=== PATIENT | male | born 1980 ===

== ENCOUNTER 2022-12-04 10:19 | Outpatient (AMB) | payer OTHER, SELFPAY ==
[2022-12-04 10:30] VITALS: BP 120/78; PULSE 70; O2SAT 98; BMI 28.5
--- NOTE | 2022-12-04 10:30 | MHC.PC.OV ---
Vital Signs 12/04/22 10:30 Height 5 ft 11 in Weight 204 lb 6 oz BMI 28.5 BP 120/78 Blood Pressure Location Lt brachial Position Sitting Pulse 70 Pulse Source Pulse Oximeter Pulse Oximetry (%) 98 Oxygen Delivery Method Room Air Intake Visit Reasons: PE Intake Note: Patient is here today for a physical. 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 Last seen in June for tick bite. [facility] Medical History Impaired glucose tolerance Tobacco abuse Surgical History (Reviewed 12/04/22 @ 10:36 by Christine Silva [facility] Anal fistula Family History (Updated 12/04/22 @ 10:58 by Naomi Cole MD) Father Prostate cancer, Onset Age: 50 Alcohol abuse Paternal Grandfather Prostate cancer Social History (Updated 12/04/22 @ 10:59 by Naomi Cole MD) Housing: House Alcohol intake: current Alcohol intake frequency: a few times a week Patient Tobacco Use Status: Former Tobacco user Tobacco use type: Cigarette Years Smoked: vape presently e-Cigarette/Vaping Use: Never Used Second Hand Smoke Exposure: No service: No Current occupational status: employed Cognitive needs: No Hearing needs: No Vision needs: No Questionnaire Thrive Questionnaire Date Thrive assessed: 11/19/21 AUDIT C Alcohol Use Questionnaire (AUDIT-C) 1. How often do you have a drink containing alcohol?: 2-4 times a month 2. How many drinks containing alcohol do you have on a typical day when you are drinking?: 5 or 6 3. How often do you have six or more drinks on one occasion?: Less than monthly Total Score: 5 ZENIA-7 AMB Questionnaire ZENIA-7 Date ZENIA - 7 assessed: 07/01/22 Source: Developed by Drs. Russ Chamberlain, Heather Giordano, Julian Arteaga and colleagues, with an educational viji from [employer]. Review of Systems Const Denies poor appetite and Denies weakness Eyes Denies no additional complaints ENT Reports Normal hearing present, Denies dizziness, Denies nasal congestion, Denies tinnitus and Denies sore throat Card Denies chest pain, Denies syncope, Denies rapid heart rate and Denies dyspnea Resp Denies cough and Denies dyspnea GI Denies change in stool character, Reports constipation, Denies diarrhea, Denies nausea and Denies vomiting Denies dysuria and Denies urinary frequency Neuro Reports Normal hearing present, Denies confusion, Denies dizziness, Denies syncope and Denies weakness Psych Denies confusion Physical exam (Primary Care) Vital Signs: Last Vital Signs Pulse 70 12/04/22 10:30 BP 120/78 12/04/22 10:30 Pulse Ox 98 12/04/22 10:30 Oxygen Delivery Method Room Air 12/04/22 10:30 BMI result Body Mass Index 28.5 Tobacco/Smoking Status: Tobacco use Status Tobacco use date assessed 07/01/22 12/04/22 10:30 Patient Tobacco Use Status Former Tobacco user 12/04/22 10:30 Tobacco use type Cigarette 12/04/22 10:30 e-Cigarette/Vaping Use Never Used 12/04/22 10:30 Thrive Assessment: Date of Thrive Assessment Date Thrive assessed 11/19/21 12/04/22 10:30 Const General: No confusion Orientation/consciousness: No confusion HENMT Head: Yes normocephalic Ears: external ears normal and TM's normal bilaterally Face and sinus: Yes normal facial exam Mouth: moist mucous membranes Throat: Yes tonsils normal Eyes Conjunctivae: conjunctivae normal Pupils: Equal, round and reactive pupils present and Pupil accommodation reflex normal Direct Ophthalmoscopy: normal light reflex Neck Neck: No lymphadenopathy Thyroid: Thyroid normal Chest Chest palpation & inspection: normal inspection of the chest Resp Effort & Inspection: normal respiratory effort and no audible wheezes Auscultation: clear to auscultation bilaterally, no crackles, no wheezes and lung sounds not diminished Cardio Rate: regular rate Rhythm: regular rhythm Peripheral pulses: radial pulses present and dorsalis pedis present GI Palpation (GI): no masses Auscultation: normal bowel sounds and normoactive bowel sounds Rectal Exam - Male: Yes deferred Male General Exam: Yes normal external exam Skin General skin exam: no rashes or lesions noted Rashes: no rashes Neuro General: No confusion Cranial nerves: Yes Equal, round and reactive pupils present and Yes Normal hearing present Cognition (Neuro): normal cognition Gait exam (Neuro): Normal gait present Motor exam (neuro): 5/5 motor strength present throughout Deep tendon reflexes (DTR's): Right brachioradialis reflex intensity grade: 2+, Left brachioradialis reflex intensity grade: 2+, Right patellar reflex intensity grade: 2+ and Left patellar reflex intensity grade: 2+ Extrem General: No edema Assessment and Plan Assessment & Plan (1) Annual physical exam: Code(s): Z00.00 - Encounter for general adult medical examination without abnormal findings (2) Tobacco abuse: Comment: Patient is vaping(November 2022) Code(s): Z72.0 - Tobacco use Plan: Patient is strongly advised to stop! (3) Impaired glucose tolerance: Code(s): R73.02 - Impaired glucose tolerance (oral) Plan: Decrease the amount of carbohydrate intake, pasta, bread, rice and potatoes are all sugar and that is aside from all the sweet stuff, remember that fruits are good but they are Sweet also. Blood work requested (4) Family history of prostate cancer: Code(s): Z80.42 - Family history of malignant neoplasm of prostate Plan: Will check for the prostate number Orders: Orders Vitamin B12 and Folate Today R73.02 - Impaired glucose tolerance (oral) Comprehensive Met. Panel Today R73.02 - Impaired glucose tolerance (oral) Hemoglobin A1c Today R73.02 - Impaired glucose tolerance (oral) Lipid Panel Today E78.00 - Pure hypercholesterolemia, unspecified, R73.02 - Impaired glucose tolerance (oral) Free T4 (Free Thyroxine) Today R73.02 - Impaired glucose tolerance (oral) Thyroid Stimulating Hormone Today R73.02 - Impaired glucose tolerance (oral) Complete Blood Count Auto Diff Today R73.02 - Impaired glucose tolerance (oral) Prostate Specific Antigen Scr Today Z80.42 - Family history of malignant neoplasm of prostate Coding Level of Care Code Est Pt Prev Care 40-64y(64012) Diagnoses Annual physical exam Z00.00 Tobacco abuse Z72.0 Impaired glucose tolerance R73.02 Family history of prostate cancer Z80.42
== END 2022-12-04 11:20 | disposition home or self-care (01) ==
PROVIDERS: Visit Provider Internal Medicine
DX: Z00.00 Encounter for general adult medical examination without abnormal findings (principal); Z72.0 Tobacco use; R73.02 Impaired glucose tolerance (oral); Z80.42 Family history of malignant neoplasm of prostate
CPT/HCPCS: 99396

== ENCOUNTER 2023-01-16 08:12 | Outpatient (AMB) | payer OTHER, SELFPAY ==
--- NOTE | 2023-01-16 08:30 | AM.OFFVISNUR ---
Intake Intake Visit Reasons: flu Allergies No Known Allergies Allergy (Verified 12/04/22 10:35) Office Procedures Flu Questionnaire Does the patient have a severe egg allergy?: No Does the patient have severe life threatening allergies?: No Does the patient have a fever or illness today?: No Has the patient ever had Guillain-[place] Syndrome?: No Has the patient ever had any past reaction to a flu shot?: No Immunizations flu vacc in9212-67 6mos up(PF) 60 mcg(15 mcgx4)/0.5 mL IM syringe Performing Provider: Naomi Cole MD Performing Location: [facility] Administered by: Alisia Garcia RN on 01/16/23 08:30 Dose Route Admin Location Dispensed Lot Number Expiration Date 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
== END 2023-01-16 08:32 | disposition home or self-care (01) ==
PROVIDERS: PCP Internal Medicine; Visit Provider Internal Medicine
DX: Z23 Encounter for immunization (principal)
CPT/HCPCS: 90471; 90686

== ENCOUNTER 2023-08-01 16:07 | Outpatient (AMB) | payer OTHER, SELFPAY ==
--- NOTE | 2023-08-01 16:08 | MHC.PC.OV ---
Intake Visit Reasons: Injured Knee Allergies No Known Allergies Allergy (Verified 08/01/23 16:09) Tobacco use date assessed: 08/01/23 Dental Screening Dental Screen Date: 08/01/23 Did you have a dental visit in the last 12 months?: Yes Did you have a dental problem in the last 6 months where you did not have access to dental care?: No Was dental information given to patient?: Patient has dentist HPI Injured Knee HPI Details 43-year-old overweight male smoker with impaired glucose tolerance coming in for an acute problem. Through Telehealth, L knee swollen week , started 2 months ago running, - stopped running 1 week now but still continues to have pain on the knee left prompted for consultation. [facility] Medical History Impaired glucose tolerance Tobacco abuse Surgical History Anal fistula Family History (Updated 08/01/23 @ 16:09 by Sherly Moon CMA) Father Prostate cancer, Onset Age: 50 Alcohol abuse Paternal Grandfather Prostate cancer Social History (Updated 12/04/22 @ 10:59 by Naomi Cole MD) Housing: House Alcohol intake: current Alcohol intake frequency: a few times a week Patient Tobacco Use Status: Former Tobacco user Tobacco use type: Cigarette Years Smoked: vape presently e-Cigarette/Vaping Use: Never Used Second Hand Smoke Exposure: No service: No Current occupational status: employed Cognitive needs: No Hearing needs: No Vision needs: No Questionnaire PHQ-9 Over the last 2 weeks, how often have you been bothered by any of the following problems? 1. Little interest or pleasure in doing things: not at all 2. Feeling down, depressed, or hopeless: not at all 3. Trouble falling or staying asleep, or sleeping too much: not at all 4. Feeling tired or having little energy: not at all 5. Poor appetite or overeating: not at all 6. Feeling bad about yourself - or that you are a failure or have let yourself or your family down: not at all 7. Trouble concentrating on things, such as reading the newspaper or watching television: not at all 8. Moving or speaking so slowly that other people could have noticed. Or the opposite - being so fidgety or restless that you have been moving around a lot more than usual: not at all 9. Thoughts that you would be better off or of hurting yourself in some way: not at all Total score: 0 Source: Developed by Drs. Russ Chamberlain, Heather Giordano, Julian Arteaga and colleagues, with an educational viji from [employer]. Thrive Questionnaire Date Thrive assessed: 08/01/23 I am a: Patient What is your living situation today?: I have a steady place to live Within the past 12 months, did the food you bought not last and you didn't have the money to get more?: Never true Within the past 12 months, did you worry whether your food would run out before you got money to buy more?: Never true Do you have trouble paying for medicines?: No Do you have trouble getting transportation to medical appointments?: No Do you have trouble paying your heating and electricity bill?: No Do you have trouble taking care of your child, family member or friend?: No Do you have trouble with day-to-day activities such as bathing, preparing meals, shopping, managing finances, etc.?: No Are you currently unemployed and looking for a job?: No Are you interested in more education?: No Currently or been in a relationship where the following occur: no concerns reported THRIVE Score: 0 AUDIT C Alcohol Use Questionnaire (AUDIT-C) 1. How often do you have a drink containing alcohol?: 2-4 times a month 2. How many drinks containing alcohol do you have on a typical day when you are drinking?: 5 or 6 3. How often do you have six or more drinks on one occasion?: Less than monthly Total Score: 5 ZENIA-7 AMB Questionnaire ZENIA-7 Date ZENIA - 7 assessed: 08/01/23 Feeling nervous, anxious, or on edge: 0 = Not at all Not being able to stop or control worryin = Not at all Worrying too much about different things: 0 = Not at all Trouble relaxin = Not at all Being so restless that it is hard to sit still: 0 = Not at all Becoming easily annoyed or irritable: 0 = Not at all Feeling afraid as if something awful might happen: 0 = Not at all Total ZENIA-7 score (0-4 normal; 5-9 mild; 10-14 moderate; 15-21 severe): 0 Source: Developed by Drs. Russ Chamberlain, Heather Giordano, Julian Arteaga and colleagues, with an educational viji from [employer]. Physical exam (Primary Care) Tobacco/Smoking Status: Tobacco use Status Tobacco use date assessed 08/01/23 08/01/23 16:10 Patient Tobacco Use Status Former Tobacco user 08/01/23 16:10 Tobacco use type Cigarette 08/01/23 16:10 e-Cigarette/Vaping Use Never Used 08/01/23 16:10 PHQ-9: PHQ-9 Score PHQ-9: Total score 0 08/01/23 16:10 Thrive Assessment: Date of Thrive Assessment Date Thrive assessed 08/01/23 08/01/23 16:10 Currently or been in a relationship where the following occur: no concerns reported Telehealth Telehealth Telehealth Platform: Telephone Location of provider rendering services: practice address Location of patient: address on file Patient Identification confirmed using: Name, : Yes Telehealth method: video (Iphone) Patient verbally consented to treatment: Yes Patient verbally consented to billing insurance company: Yes Patient informed of any privacy concerns related to visit: Yes Minutes spent on Phone/Video with Pt.: 15 Assessment and Plan Assessment & Plan (1) Left knee pain: Code(s): M25.562 - Pain in left knee Plan: X-ray has been requested discussed about if persistent may get Orthopedics involved. May use heat and Voltaren gel for pain Orders: Orders XR knee LT 2V Today M25.562 - Pain in left knee Coding Level of Care Code Tele Est Pt Level 3 (04452) Diagnoses Left knee pain M25.562
== END 2023-08-01 16:56 | disposition home or self-care (01) ==
LOC: HO.HMGH 16:07
PROVIDERS: PCP Internal Medicine; Visit Provider Internal Medicine
DX: M25.562 Pain in left knee (principal)
CPT/HCPCS: 99213

== ENCOUNTER 2023-08-02 07:47 | Outpatient (REF) | payer OTHER, SELFPAY ==
--- NOTE | ~2023-08-02 | XR_ITS ---
EXAMINATION: XR KNEE, LEFT CLINICAL INFORMATION: Pain. COMPARISON: None available. TECHNIQUE: AP and lateral views of the left knee. FINDINGS: No fracture or dislocation. There is a small joint effusion. Alignment is anatomic. Joint spaces are maintained. No abnormal soft tissue calcification. XR/XR knee LT 2V IMPRESSION: 1. No left knee fracture, dislocation or unusual degenerative change is seen. 2. There is a small left knee joint effusion.
[2023-08-02 08:10] LABS: MANUAL DIFF FLAG NO
[2023-08-02 08:32] LABS: Basophils Percent Auto 0.5 % (0-2); Eosinophils Absolute Auto 0.1 X10*3/uL (0.0-0.4); Eosinophils Percent Auto 3.1 % (0-4); Hematocrit 43.6 % (42.0-52.0); Hemoglobin 14.9 g/dl (14.0-18.0); Imm Gran Abs Auto 0.01 X10*3/uL (0.00-0.03); Imm Gran Pct Auto 0.3 % (0.0-0.4); Lymphocytes Absolute Auto 1.2 X10*3/uL (1.2-4.9); Lymphocytes Percent Auto 30.4 % (20-40); Mean Corpuscular HGB Conc 34.2 g/dl (31.0-36.0); Mean Corpuscular Hemoglobin 31.5 pg (27.0-33.0); Mean Corpuscular Volume 92.2 fL (80.0-98.0); Mean Platelet Volume 10.4 fL (9.4-12.4); Monocytes Absolute Auto 0.4 X10*3/uL (0.1-1.2); Neutrophils Absolute Auto 2.1 x10*3/uL (2.0-8.3); Neutrophils Percent Auto 54.7 % (45-73); Platelet Count 200 X10*3/uL (160-400); Red Blood Count 4.73 X10*6/uL (4.60-5.80); White Blood Count 3.9 X10*3/uL (4.8-10.8)
[2023-08-02 08:53] LABS: Estimated Average Glucose 103 mg/dL; Hemoglobin A1c % 5.2 % (<6.0)
[2023-08-02 09:24] LABS: Alanine Aminotransferase 14 U/L (0-40); Albumin Level 4.4 g/dL (3.5-5.0); Alkaline Phosphatase 46 U/L (39-117); Anion Gap 11 (12-20); Aspartate Amino Transferase 13 U/L (5-37); Bilirubin Total 0.4 mg/dL (0.0-1.0); Blood Urea Nitrogen 10 mg/dL (9-16); Calcium 9.6 mg/dL (8.4-10.2); Carbon Dioxide 26 mmol/L (22-29); Chloride 107 mmol/L (96-108); Cholesterol 233 mg/dL (<200); Estimated Glomerular Filt Rate > 60; Glucose Random 105 mg/dL (60-115); HDL Cholesterol 53 mg/dL (>40); LDL Cholesterol Calculated 159 mg/dL (<100); Potassium 4.3 mmol/L (3.3-5.1); Sodium 140 mmol/L (135-145); Triglycerides 105 mg/dL (<150)
[2023-08-02 09:41] LABS: Free T4 (Free Thyroxine) 1.08 ng/dL (0.71-1.85); Thyroid Stimulating Hormone 1.36 uIU/mL (0.32-4.0)
[2023-08-02 12:06] LABS: Folate 12.9 ng/mL (> or = 4.0); Prostate Specific Antigen Scr 0.37 ng/mL (<0.05-4.0); Vitamin B12 445 pg/mL (200-900)
== END 2023-08-02 07:48 | disposition home or self-care (01) ==
LOC: HO.XRAY 07:47
PROVIDERS: PCP Internal Medicine; Visit Provider Internal Medicine
DX: E78.00 Pure hypercholesterolemia, unspecified (principal); R73.02 Impaired glucose tolerance (oral); M25.562 Pain in left knee; Z12.5 Encounter for screening for malignant neoplasm of prostate; Z80.42 Family history of malignant neoplasm of prostate
CPT/HCPCS: 36415; 73560; 80053; 80061; 82607; 82746; 83036; 84153; 84439; 84443; 85025

== ENCOUNTER 2023-08-28 09:53 | Outpatient (AMB) | payer OTHER, SELFPAY ==
--- NOTE | 2023-08-28 09:57 | A.OFFVIS_ITS ---
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 The patient states that he aggravated his left knee several months ago while running. Since that time his discomfort and swelling have gotten worse. Most of the pain is along the medial aspect of his knee. He has tried physical therapy exercises which aggravated his pain. He has had difficulty running because of his pain. He has tried Tylenol and anti-inflammatory medicines which gave him minimal relief. He has failed the last 6 weeks of conservative treatment. Allergies No Known Allergies Allergy (Verified 08/28/23 10:04) Medication List - Last Reconciled 08/28/23 by Willian Storey MD No Known Home Meds [facility] Medical History Impaired glucose tolerance Tobacco abuse Surgical History Anal fistula Family History (Updated 08/01/23 @ 16:09 by Sherly Moon [facility]) Father Prostate cancer, Onset Age: 50 Alcohol abuse Paternal Grandfather Prostate cancer Social History (Updated 08/28/23 @ 10:04 by Merary Petersen [facility]) Housing: House Alcohol intake: current Alcohol intake frequency: a few times a week Patient Tobacco Use Status: Former Tobacco user Tobacco use type: Cigarette Years Smoked: vape presently e-Cigarette/Vaping Use: Never Used Second Hand Smoke Exposure: No service: No Current occupational status: employed 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 Cognitive needs: No Hearing needs: No Vision needs: No Physical Exam Vital Signs: BMI result Body Mass Index 28.4 Const Other: Well-nourished well-developed very friendly male awake alert and oriented x3 in no acute distress Extrem Other: Bilateral lower extremity examination shows good capillary refill, no skin lesions noted, normal sensation light touch Left knee examination shows a mild effusion, minimal crepitus with range of motion, tenderness along his medial joint line, positive Jorge's test, no instability Results Reviewed Results Reviewed: Standing full weight-bearing x-rays of the patient's left knee show minimal joint space narrowing, no acute bony abnormalities Assessment & Plan Assessment & Plan (1) Left knee pain: Code(s): M25.562 - Pain in left knee Category: Medical Plan Mr. Rees presents with left knee pain and swelling most likely due to a tear of his medial meniscus. Thus, I will send the patient for an MRI of his left knee for further evaluation. I will see him back once the MRI is completed to discuss the findings and treatment options. Feel free to call me at any time should questions regarding his orthopedic management arise. I spent 21 minutes in reviewing the patient's records and imaging studies, seeing the patient and documenting in the medical record. Orders: Orders MR knee LT wo con Today M25.562 - Pain in left knee Coding Level of Care Code New Pt Level 3 (67507) Diagnoses Left knee pain M25.562
[2023-08-28 09:58] VITALS: BMI 28.4
== END 2023-08-28 10:21 | disposition home or self-care (01) ==
PROVIDERS: PCP Internal Medicine; Visit Provider Orthopaedic Surgery
DX: M25.562 Pain in left knee (principal)
CPT/HCPCS: 99203

== ENCOUNTER → 2023-08-28 09:53 | Outpatient (BNVA) | payer OTHER, SELFPAY | PROVIDERS: PCP Internal Medicine; Visit Provider Orthopaedic Surgery ==

== ENCOUNTER 2023-10-27 07:09 | Outpatient (REF) | payer OTHER, SELFPAY ==
--- NOTE | ~2023-10-27 | MR_ITS ---
EXAMINATION: MR KNEE WITHOUT CONTRAST, LEFT CLINICAL INFORMATION: Pain in the left knee. COMPARISON: X-rays of the left knee July 2023. TECHNIQUE: MRI of the knee without contrast was performed using routine sequences on a high-field scanner. FINDINGS: MENISCI: Medial Meniscus: Intact. Lateral Meniscus: Intact. LIGAMENTS: Cruciate: Intact. Collateral: Intact. EXTENSOR MECHANISM: Intact. ARTICULAR CARTILAGE/BONE: Patellofemoral Compartment: There are some scattered areas of cartilage heterogeneity and subchondral edema in the lateral facet of the patella and lateral trochlea indicative of mild patellofemoral arthrosis. Medial Compartment: Normal. Lateral Compartment: Minimal heterogeneity of the weightbearing tibial articular cartilage compatible with normal variation or minimal arthrosis. Slight concavity of the shape of the subchondral bone along the medial weightbearing portion of the femoral articular surface. The overlying articular cartilage appears intact. This could be sequela of old subchondral/osteochondral fracture. JOINT FLUID AND BURSAE: Trace Camp's cyst. MR/MR knee LT wo con IMPRESSION: 1. Mild patellofemoral arthrosis. 2. Minimal arthrosis of the lateral compartment. 3. Trace Camp's cyst.
== END 2023-10-27 07:10 | disposition home or self-care (01) ==
LOC: HO.MRI 07:09
PROVIDERS: PCP Internal Medicine; Visit Provider Orthopaedic Surgery
DX: M25.562 Pain in left knee (principal)
CPT/HCPCS: 73721

== ENCOUNTER 2023-11-25 07:36 | Outpatient (AMB) | payer OTHER, SELFPAY ==
--- NOTE | 2023-11-25 07:38 | A.OFFVIS_ITS ---
Vital Signs 11/25/23 07:42 Height 5 ft 11 in Weight 204 lb BMI 28.4 Intake Visit Reasons: OV - Left Knee MRI Review Intake Note: Ming is a 43 year old male who presents to the office today for a Left Knee MRI Review. He states that his swelling went down in his knee due resting. He is planning on slowly returning to running for exercise. He denies locking or giving way. Allergies No Known Allergies Allergy (Verified 11/25/23 07:42) Medication List - Last Reconciled 11/25/23 by Willian Storey MD No Known Home Meds [facility] Medical History Impaired glucose tolerance Tobacco abuse Surgical History Anal fistula Family History (Updated 08/01/23 @ 16:09 by Sherly Moon CMA) Father Prostate cancer, Onset Age: 50 Alcohol abuse Paternal Grandfather Prostate cancer Social History Housing: House Alcohol intake: current Alcohol intake frequency: a few times a week Patient Tobacco Use Status: Former Tobacco user Tobacco use type: Cigarette Years Smoked: vape presently e-Cigarette/Vaping Use: Never Used Second Hand Smoke Exposure: No service: No Current occupational status: employed 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 Cognitive needs: No Hearing needs: No Vision needs: No Physical Exam Vital Signs: BMI result Body Mass Index 28.4 Const Other: Well-nourished well-developed very friendly male awake alert and oriented x3 in no acute distress Extrem Other: Bilateral lower extremity examination shows good capillary refill, no skin lesions noted, normal sensation light touch Left knee examination shows a minimal effusion, no crepitus with range of motion, no instability Results Reviewed Results Reviewed: MRI of the patient's left knee shows minimal diffuse arthrosis, no acute bony abnormalities Assessment & Plan Assessment & Plan (1) Left knee pain: Code(s): M25.562 - Pain in left knee Category: Medical Plan Mr. Rees presents with intermittent left knee discomfort due to early degenerative joint disease. I had a lengthy discussion with the patient regarding the treatment options. At this point the patient's symptoms are tolerable to him. We will hold off on an injection. Will gradually progress to activities as tolerated. He will follow up with me on an as-needed basis should his symptoms worsen in any way. Feel free to call me at any time should questions regarding his orthopedic management arise. I spent 20 minutes in reviewing the patient's records and imaging studies, seeing the patient and documenting in the medical record. Coding Level of Care Code Est Pt Level 3 (22590) Diagnoses Left knee pain M25.562
[2023-11-25 07:42] VITALS: BMI 28.4
== END 2023-11-25 07:52 | disposition home or self-care (01) ==
PROVIDERS: PCP Internal Medicine; Visit Provider Orthopaedic Surgery
DX: M25.562 Pain in left knee (principal)
CPT/HCPCS: 99212

== ENCOUNTER → 2023-11-25 07:36 | Outpatient (BNVA) | payer OTHER, SELFPAY | PROVIDERS: PCP Internal Medicine; Visit Provider Orthopaedic Surgery ==

== ENCOUNTER 2023-12-09 08:49 | Outpatient (AMB) | payer OTHER, SELFPAY ==
[2023-12-09 08:49] VITALS: BP 110/68; PULSE 61; O2SAT 98; BMI 28.0
--- NOTE | 2023-12-09 08:49 | MHC.PC.OV ---
Vital Signs 12/09/23 08:49 Height 5 ft 11 in Weight 201 lb BMI 28.0 BP 110/68 Blood Pressure Location Lt brachial Position Sitting Pulse 61 Pulse Source Pulse Oximeter Pulse Oximetry (%) 98 Oxygen Delivery Method Room Air Intake Visit Reasons: pe Allergies No Known Allergies Allergy (Verified 12/09/23 08:50) Medication List - Last Reconciled 12/09/23 by Naomi Cole MD [AG1 PO] omega 5-lgg-cvi-fish oil 120-180-500 mg (Fish Oil) caps PO [vitamin d and K PO] Tobacco use date assessed: 08/01/23 Dental Screening Dental Screen Date: 12/09/23 Did you have a dental visit in the last 12 months?: Yes Did you have a dental problem in the last 6 months where you did not have access to dental care?: No Was dental information given to patient?: Patient has dentist HPI pe HPI Details 43-year-old overweight male smoker with with impaired glucose tolerance hypercholesterolemia coming in for physical exam last seen in July 2023 for left knee pain. Patient has been seen by orthopedics in November 24 had an MRI showing minimal diffuse arthrosis. [facility] Medical History Impaired glucose tolerance Tobacco abuse Surgical History Anal fistula Family History (Updated 08/01/23 @ 16:09 by Sherly Moon [facility]) Father Prostate cancer, Onset Age: 50 Alcohol abuse Paternal Grandfather Prostate cancer Social History (Updated 12/09/23 @ 09:06 by Naoim Cole MD) Housing: House Alcohol intake: current Alcohol intake frequency: a few times a week Comment: 3x a week 2-3 drinks Patient Tobacco Use Status: Former Tobacco user Tobacco use type: Cigarette Years Smoked: vape presently e-Cigarette/Vaping Use: Never Used Second Hand Smoke Exposure: No service: No Current occupational status: employed 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 1. Little interest or pleasure in doing things: not at all 2. Feeling down, depressed, or hopeless: not at all 3. Trouble falling or staying asleep, or sleeping too much: not at all 4. Feeling tired or having little energy: not at all 5. Poor appetite or overeating: not at all 6. Feeling bad about yourself - or that you are a failure or have let yourself or your family down: not at all 7. Trouble concentrating on things, such as reading the newspaper or watching television: not at all 8. Moving or speaking so slowly that other people could have noticed. Or the opposite - being so fidgety or restless that you have been moving around a lot more than usual: not at all 9. Thoughts that you would be better off or of hurting yourself in some way: not at all Total score: 0 Source: Developed by Drs. Russ Chamberlain, Heather Giordano, Julian Arteaga and colleagues, with an educational viji from [employer] Thrive Questionnaire Date Thrive assessed: 08/01/23 AUDIT C Alcohol Use Questionnaire (AUDIT-C) 1. How often do you have a drink containing alcohol?: 2-4 times a month 2. How many drinks containing alcohol do you have on a typical day when you are drinking?: 5 or 6 3. How often do you have six or more drinks on one occasion?: Less than monthly Total Score: 5 ZENIA-7 AMB Questionnaire ZENIA-7 Date ZENIA - 7 assessed: 12/09/23 Feeling nervous, anxious, or on edge: 0 = Not at all Not being able to stop or control worryin = Not at all Worrying too much about different things: 0 = Not at all Trouble relaxin = Not at all Being so restless that it is hard to sit still: 0 = Not at all Becoming easily annoyed or irritable: 0 = Not at all Feeling afraid as if something awful might happen: 0 = Not at all Total ZENIA-7 score (0-4 normal; 5-9 mild; 10-14 moderate; 15-21 severe): 0 Source: Developed by Drs. Russ Chamberlain, Heather Giordano, Julian Arteaga and colleagues, with an educational viji from [employer] Review of Systems Const Denies poor appetite and Denies weakness Eyes Denies no additional complaints ENT Reports Normal hearing present, Denies dizziness, Denies nasal congestion, Denies tinnitus and Denies sore throat Card Denies chest pain, Denies syncope, Denies rapid heart rate and Denies dyspnea Resp Denies cough and Denies dyspnea GI Denies change in stool character, Reports constipation, Denies diarrhea, Denies nausea and Denies vomiting Denies dysuria and Denies urinary frequency Neuro Reports Normal hearing present, Denies confusion, Denies dizziness, Denies syncope and Denies weakness Psych Denies confusion Physical exam (Primary Care) Vital Signs: Oxygen Delivery Method Room Air 12/09/23 08:49 Tobacco/Smoking Status: Tobacco use Status Tobacco use date assessed 08/01/23 12/09/23 08:50 Patient Tobacco Use Status Former Tobacco user 12/09/23 08:50 Tobacco use type Cigarette 12/09/23 08:50 e-Cigarette/Vaping Use Never Used 12/09/23 08:50 PHQ-9: PHQ-9 Score PHQ-9: Total score 0 12/09/23 08:50 Thrive Assessment: Date of Thrive Assessment Date Thrive assessed 08/01/23 12/09/23 08:50 Const General: No confusion Orientation/consciousness: No confusion HENMT Head: Yes normocephalic Ears: external ears normal and TM's normal bilaterally Face and sinus: Yes normal facial exam Mouth: moist mucous membranes Throat: Yes tonsils normal Eyes Conjunctivae: conjunctivae normal Pupils: Equal, round and reactive pupils present and Pupil accommodation reflex normal Direct Ophthalmoscopy: normal light reflex Neck Neck: No lymphadenopathy Thyroid: Thyroid normal Chest Chest palpation & inspection: normal inspection of the chest Resp Effort & Inspection: normal respiratory effort and no audible wheezes Auscultation: clear to auscultation bilaterally, no crackles, no wheezes and lung sounds not diminished Cardio Rate: regular rate Rhythm: regular rhythm Peripheral pulses: radial pulses present and dorsalis pedis present GI Palpation (GI): no masses Auscultation: normal bowel sounds and normoactive bowel sounds Rectal Exam - Male: Yes deferred Skin General skin exam: no rashes or lesions noted Rashes: no rashes Neuro General: No confusion Cranial nerves: Yes Equal, round and reactive pupils present and Yes Normal hearing present Cognition (Neuro): normal cognition Gait exam (Neuro): Normal gait present Motor exam (neuro): 5/5 motor strength present throughout Deep tendon reflexes (DTR's): Right brachioradialis reflex intensity grade: 2+, Left brachioradialis reflex intensity grade: 2+, Right patellar reflex intensity grade: 2+ and Left patellar reflex intensity grade: 2+ Extrem General: No edema Assessment and Plan Assessment & Plan (1) Annual physical exam: Code(s): Z00.00 - Encounter for general adult medical examination without abnormal findings Plan: Patient is advised to eat healthy, keep well hydrated, keep active and have adequate sleep. (2) Hypercholesterolemia: Code(s): E78.00 - Pure hypercholesterolemia, unspecified Plan: Avoid fried foods, chicken skin, eggs, butter margarine, pastries and meat. Be it pork or beef they have a lot of cholesterol LDL goal of less than 130 and triglyceride of less than 150. (3) Tobacco abuse: Comment: Patient is vaping(November 2022) Code(s): Z72.0 - Tobacco use Plan: Discussed about plans of stopping. (4) Impaired glucose tolerance: Code(s): R73.02 - Impaired glucose tolerance (oral) Plan: Decrease the amount of carbohydrate intake, pasta, bread, rice and potatoes are all sugar and that is aside from all the sweet stuff, remember that fruits are good but they are Sweet also. (5) Left knee pain: Code(s): M25.562 - Pain in left knee Plan: Patient has met with Orthopedics and conservative management Orders: Orders Complete Blood Count Auto Diff 1 Year E78.00 - Pure hypercholesterolemia, unspecified Comprehensive Met. Panel 1 Year E78.00 - Pure hypercholesterolemia, unspecified Lipid Panel 1 Year E78.00 - Pure hypercholesterolemia, unspecified Vitamin B12 and Folate 1 Year E78.00 - Pure hypercholesterolemia, unspecified Hemoglobin A1c 1 Year R73.02 - Impaired glucose tolerance (oral) Free T4 (Free Thyroxine) 1 Year E78.00 - Pure hypercholesterolemia, unspecified Thyroid Stimulating Hormone 1 Year E78.00 - Pure hypercholesterolemia, unspecified Coding Level of Care Code Est Pt Prev Care 40-64y(19535) Diagnoses Annual physical exam Z00.00 Hypercholesterolemia E78.00 Tobacco abuse Z72.0 Impaired glucose tolerance R73.02 Left knee pain M25.562
== END 2023-12-09 09:25 | disposition home or self-care (01) ==
PROVIDERS: PCP Internal Medicine; Visit Provider Internal Medicine
DX: Z00.00 Encounter for general adult medical examination without abnormal findings (principal); E78.00 Pure hypercholesterolemia, unspecified; Z72.0 Tobacco use; R73.02 Impaired glucose tolerance (oral); M25.562 Pain in left knee
CPT/HCPCS: 99396

== ENCOUNTER 2024-12-10 10:02 | Outpatient (AMB) | payer OTHER, SELFPAY ==
--- NOTE | 2024-12-10 10:06 | A.OFFPC_ITS ---
Vital Signs 12/10/24 10:07 Height 5 ft 11 in Weight 196 lb BMI 27.3 BP 122/68 Blood Pressure Location Lt brachial Position Sitting Pulse 70 Pulse Source Pulse Oximeter Pulse Oximetry (%) 98 Oxygen Delivery Method Room Air Intake Visit Reasons: Annual Exam Allergies No Known Allergies Allergy (Verified 12/10/24 10:11) Medication List - Last Reconciled 12/10/24 by Naomi Cole MD [AG1 PO] nicotine 1 patch transdermal Q24H [vitamin d and K PO] Tobacco use date assessed: 12/10/24 Dental Screening Dental Screen Date: 12/10/24 Did you have a dental visit in the last 12 months?: Yes Did you have a dental problem in the last 6 months where you did not have access to dental care?: No Was dental information given to patient?: Patient has dentist [facility] Medical History (Updated 12/10/24 @ 10:43 by Naomi Cole MD) Impaired glucose tolerance Tobacco abuse Surgical History Anal fistula Family History (Updated 08/01/23 @ 16:09 by Sherly Moon [facility]) Father Prostate cancer, Onset Age: 50 Alcohol abuse Paternal Grandfather Prostate cancer Social History (Updated 12/10/24 @ 10:45 by Naomi Cole MD) Housing: House Alcohol intake: current Alcohol intake frequency: a few times a week Comment: 3x a week 2-3 drinks- dry October 2024, normally 2 a night Patient Tobacco Use Status: Former Tobacco user Tobacco use type: Cigarette Years Smoked: vape presently, nicotine patch 12/2024 e-Cigarette/Vaping Use: Never Used Second Hand Smoke Exposure: No service: No Current occupational status: employed 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 1. Little interest or pleasure in doing things: not at all 2. Feeling down, depressed, or hopeless: not at all 3. Trouble falling or staying asleep, or sleeping too much: not at all 4. Feeling tired or having little energy: not at all 5. Poor appetite or overeating: not at all 6. Feeling bad about yourself - or that you are a failure or have let yourself or your family down: not at all 7. Trouble concentrating on things, such as reading the newspaper or watching television: not at all 8. Moving or speaking so slowly that other people could have noticed. Or the opposite - being so fidgety or restless that you have been moving around a lot more than usual: not at all 9. Thoughts that you would be better off or of hurting yourself in some way: not at all Total score: 0 Depression Screening Interpretation: Negative Depression Screening Done: Yes Source: Developed by Drs. Russ Chamberlain, Heather Giordano, Julian Arteaga and colleagues, with an educational viji from [employer]. Thrive Questionnaire Date Thrive assessed: 12/03/24 I am a: Patient What is your living situation today?: I have a steady place to live Within the past 12 months, did the food you bought not last and you didn't have the money to get more?: Never true Within the past 12 months, did you worry whether your food would run out before you got money to buy more?: Never true Do you have trouble paying for medicines?: No Do you have trouble getting transportation to medical appointments?: No Do you have trouble paying your heating and electricity bill?: No Do you have trouble taking care of your child, family member or friend?: No Do you have trouble with day-to-day activities such as bathing, preparing meals, shopping, managing finances, etc.?: No Are you currently unemployed and looking for a job?: No Are you interested in more education?: No Please select the resources that you would like help with: None Currently or been in a relationship where the following occur: No concerns reported THRIVE Score: 0 AUDIT C Alcohol Use Questionnaire (AUDIT-C) 1. How often do you have a drink containing alcohol?: 2-3 times a week 2. How many drinks containing alcohol do you have on a typical day when you are drinking?: 1 or 2 3. How often do you have six or more drinks on one occasion?: Less than monthly Total Score: 4 ZENIA-7 AMB Questionnaire ZENIA-7 Date ZENIA - 7 assessed: 12/10/24 Feeling nervous, anxious, or on edge: 1 = Several days Not being able to stop or control worryin = Not at all Worrying too much about different things: 1 = Several days Trouble relaxin = Not at all Being so restless that it is hard to sit still: 0 = Not at all Becoming easily annoyed or irritable: 1 = Several days Feeling afraid as if something awful might happen: 0 = Not at all Total ZENIA-7 score (0-4 normal; 5-9 mild; 10-14 moderate; 15-21 severe): 3 Source: Developed by Drs. Russ Chamberlain, Heather Giordano, Julian Arteaga and colleagues, with an educational viji from [employer]. Review of Systems Const Denies poor appetite and Denies weakness Eyes Denies no additional complaints ENT Reports Normal hearing present, Denies dizziness, Denies nasal congestion, Denies tinnitus and Denies sore throat Card Denies chest pain, Denies syncope, Denies rapid heart rate and Denies dyspnea Resp Denies cough and Denies dyspnea GI Denies change in stool character, Reports constipation, Denies diarrhea, Denies nausea and Denies vomiting Denies dysuria and Denies urinary frequency Neuro Reports Normal hearing present, Denies confusion, Denies dizziness, Denies syncope and Denies weakness Psych Denies confusion Physical exam (Primary Care) Vital Signs: Last Vital Signs Pulse 70 12/10/24 10:07 BP 122/68 12/10/24 10:07 Pulse Ox 98 12/10/24 10:07 Oxygen Delivery Method Room Air 12/10/24 10:07 BMI result Body Mass Index 27.3 Tobacco/Smoking Status: Tobacco use Status Tobacco use date assessed 12/10/24 12/10/24 10:12 Patient Tobacco Use Status Former Tobacco user 12/10/24 10:45 Tobacco use type Cigarette 12/10/24 10:45 e-Cigarette/Vaping Use Never Used 12/10/24 10:45 PHQ-9: PHQ-9 Score PHQ-9: Total score 0 12/10/24 10:39 Depression Screening Interpretation: Negative Thrive Assessment: Date of Thrive Assessment Date Thrive assessed 12/03/24 12/10/24 10:09 Currently or been in a relationship where the following occur: No concerns reported Const General: No confusion Orientation/consciousness: No confusion HENMT Head: Yes normocephalic Ears: external ears normal and TM's normal bilaterally Face and sinus: Yes normal facial exam Mouth: moist mucous membranes Throat: Yes tonsils normal Eyes Conjunctivae: conjunctivae normal Pupils: Equal, round and reactive pupils present and Pupil accommodation reflex normal Direct Ophthalmoscopy: normal light reflex Neck Neck: No lymphadenopathy Thyroid: Thyroid normal Chest Chest palpation & inspection: normal inspection of the chest Resp Effort & Inspection: normal respiratory effort and no audible wheezes Auscultation: clear to auscultation bilaterally, no crackles, no wheezes and lung sounds not diminished Cardio Rate: regular rate Rhythm: regular rhythm Peripheral pulses: radial pulses present and dorsalis pedis present GI Palpation (GI): no masses Auscultation: normal bowel sounds and normoactive bowel sounds Rectal Exam - Male: Yes deferred Skin General skin exam: no rashes or lesions noted Rashes: no rashes Neuro General: No confusion Cranial nerves: Yes Equal, round and reactive pupils present and Yes Normal hea ring present Cognition (Neuro): normal cognition Gait exam (Neuro): Normal gait present Motor exam (neuro): 5/5 motor strength present throughout Deep tendon reflexes (DTR's): Right brachioradialis reflex intensity grade: 2+, Left brachioradialis reflex intensity grade: 2+, Right patellar reflex intensity grade: 2+ and Left patellar reflex intensity grade: 2+ Extrem General: No edema Coding Level of Care Code Est Pt Prev Care 40-64y(11734) Diagnoses Annual physical exam Z00.00 Tobacco abuse Z72.0 Impaired glucose tolerance R73.02 Hypercholesterolemia E78.00 Assessment & Plan Assessment & Plan (1) Annual physical exam: Code(s): Z00.00 - Encounter for general adult medical examination without abnormal findings Category: Medical Plan: Patient is advised to eat healthy, keep well hydrated, keep active and have adequate sleep. (2) Tobacco abuse: Comment: Patient is vaping(November 2022) on patch 12/2024 Code(s): Z72.0 - Tobacco use Category: Medical Plan: Patient is strongly advised to stop! (3) Impaired glucose tolerance: Code(s): R73.02 - Impaired glucose tolerance (oral) Category: Medical Plan: Decrease the amount of carbohydrate intake, pasta, bread, rice and potatoes are all sugar and that is aside from all the sweet stuff, remember that fruits are good but they are Sweet also. (4) Hypercholesterolemia: Code(s): E78.00 - Pure hypercholesterolemia, unspecified Category: Medical Plan: Avoid fried foods, chicken skin, eggs, butter margarine, pastries and meat. Be it pork or beef they have a lot of cholesterol LDL goal of less than 130 and triglyceride of less than 150 Plan History of Present Illness The patient is a 44-year-old male presenting for a physical examination and management of chronic conditions. The patient has a history of impaired glucose tolerance, with previous blood work indicating elevated blood sugar levels but normal hemoglobin A1c. He has not been on any medication for this condition and is currently not experiencing any symptoms related to hyperglycemia. The patient also has hypercholesterolemia, with an LDL cholesterol level of 159 mg/dL noted in the last blood work. He has been advised to aim for an LDL goal of less than 130 mg/dL and triglycerides less than 150 mg/dL. The patient has a history of nicotine dependence and is currently using nicotine patches as part of a smoking cessation plan. He has stopped smoking cigarettes and vaping, and is gradually reducing the nicotine patch dosage. A lipoma was identified and previously evaluated with an ultrasound, confirming it as benign. The patient has scheduled a procedure to have it removed in a few weeks. Health Maintenance - Flu vaccination planned for January - Smoking cessation with nicotine patches - Dietary modifications to lower LDL cholesterol Social History - Substance Use: Former smoker, currently using nicotine patches, stopped vaping. - Exercise: Previously engaged in running, currently using elliptical due to knee arthritis. - Alcohol Use: Completed october and has not consumed alcohol in the past two months. Review of Systems - General: Denies dizziness, syncope, nausea, vomiting, fever. - Cardiovascular: Denies chest pain, dyspnea, or palpitations. - Gastrointestinal: Reports occasional heartburn, denies constipation or diarrhea. - Genitourinary: Denies dysuria, nocturia has decreased in the past two months. - Neurological: Denies headaches or balance issues. Physical Exam General: Cooperative, healthy appearing, comfortable, no acute distress and well developed Orientation: Patient oriented x3 Limitations: No limitations Head: Normal to inspection Ears: Hearing grossly normal bilaterally Nose: Normal external nose present Face and sinus: Normal facial exam Eyes: Appearance normal, both eyes and all related structures Neck: Normal visual inspection and Yes full ROM Respiratory: Normal respiratory effort and able to speak in complete sentences. Clear to auscultation bilaterally Cardiovascular: Regular rate and rhythm. Normal S1 and S2 GI: Normal to inspection. Soft to palpation and nontender Skin: No rashes or lesions noted Neuro: Patient oriented x3 Extremities: Normal to inspection Results - Labs: Previous blood work showed mild leukopenia, elevated blood sugar, normal hemoglobin A1c, LDL cholesterol at 159 mg/dL. - Imaging: Ultrasound confirmed lipoma as benign. Plan Patient was informed and verbally consented to the use of an ambient scribe for clinic note documentation during this visit. 1. Impaired Glucose Tolerance The patient has impaired glucose tolerance with previous blood work indicating elevated blood sugar levels but normal hemoglobin A1c. No medication is currently prescribed, and lifestyle modifications including diet and exercise are recommended to manage this condition. 2. Hypercholesterolemia The patient has hypercholesterolemia with an LDL cholesterol level of 159 mg/dL. The plan includes dietary modifications to achieve an LDL goal of less than 130 mg/dL and triglycerides less than 150 mg/dL. 3. Nicotine Dependence The patient is currently using nicotine patches as part of a smoking cessation plan. He has stopped smoking cigarettes and vaping, and is gradually reducing the nicotine patch dosage. 4. Lipoma A lipoma was identified and previously evaluated with an ultrasound, confirming it as benign. The patient has scheduled a procedure to have it removed in a few weeks. Discussion Notes During the visit, we discussed the patient's impaired glucose tolerance and the importance of lifestyle modifications, including diet and exercise, to manage this condition. We also reviewed the patient's hypercholesterolemia and set goals for LDL and triglyceride levels, emphasizing dietary changes. The patient is advised to continue using nicotine patches as part of his smoking cessation plan and to gradually reduce the dosage. We also discussed the planned removal of the lipoma, which has been confirmed as benign. Patient Instructions - Continue using nicotine patches and gradually reduce the dosage. - Follow dietary recommendations to lower LDL cholesterol and triglycerides. - Schedule and receive the flu vaccination in January. - Maintain regular physical activity, considering low-impact exercises like using an elliptical. Orders: Orders Prostate Specific Antigen Scr Today Z80.42 - Family history of malignant neoplasm of prostate
[2024-12-10 10:07] VITALS: BP 122/68; PULSE 70; O2SAT 98; BMI 27.3
== END 2024-12-10 10:58 | disposition home or self-care (01) ==
LOC: HO.HMCH 10:02
PROVIDERS: PCP Internal Medicine; Visit Provider Internal Medicine
DX: Z00.00 Encounter for general adult medical examination without abnormal findings (principal); Z72.0 Tobacco use; R73.02 Impaired glucose tolerance (oral); E78.00 Pure hypercholesterolemia, unspecified

== ENCOUNTER 2025-01-24 07:33 | Outpatient (REF) | payer OTHER, SELFPAY ==
[2025-01-24 07:54] LABS: MANUAL DIFF FLAG NO
[2025-01-24 08:20] LABS: Hematocrit 41.5 % (42.0-52.0); Hemoglobin 13.9 g/dl (14.0-18.0); Imm Gran Abs Auto 0.01 X10*3/uL (0.00-0.03); Imm Gran Pct Auto 0.2 % (0.0-0.4); Lymphocytes Absolute Auto 1.2 X10*3/uL (1.2-4.9); Mean Corpuscular HGB Conc 33.5 g/dl (31.0-36.0); Mean Corpuscular Hemoglobin 30.2 pg (27.0-33.0); Mean Corpuscular Volume 90.2 fL (80.0-98.0); NRBC Abs Auto 0.000 X10*3/uL (0.0-0.012); NRBC Pct Auto 0.0 /100WBC (0.0-0.2); Platelet Count 196 X10*3/uL (160-400); Red Blood Count 4.60 X10*6/uL (4.60-5.80); White Blood Count 4.9 X10*3/uL (4.8-10.8)
[2025-01-24 08:49] LABS: Alanine Aminotransferase 18 U/L (0-40); Albumin Level 4.4 g/dL (3.5-5.0); Alkaline Phosphatase 51 U/L (39-117); Anion Gap 12 (12-20); Aspartate Amino Transferase 20 U/L (5-37); Blood Urea Nitrogen 13 mg/dL (9-16); Calcium 9.2 mg/dL (8.4-10.2); Carbon Dioxide 20 mmol/L (22-29); Chloride 112 mmol/L (96-108); Cholesterol 225 mg/dL (<200); Estimated Glomerular Filt Rate > 60; HDL Cholesterol 48 mg/dL (>40); Potassium 3.9 mmol/L (3.3-5.1); Sodium 140 mmol/L (135-145); Total Protein 6.5 g/dL (6.5-8.0); Triglycerides 93 mg/dL (<150)
[2025-01-24 09:12] LABS: Free T4 (Free Thyroxine) 1.01 ng/dL (0.71-1.85); Thyroid Stimulating Hormone 1.27 uIU/mL (0.32-4.0)
[2025-01-24 09:19] LABS: Folate 13.3 ng/mL (> or = 4.0); Vitamin B12 1717 pg/mL (200-900)
== END 2025-01-24 07:34 | disposition home or self-care (01) ==
LOC: HO.LAB 07:33
PROVIDERS: PCP Internal Medicine; Visit Provider Internal Medicine
DX: Z12.5 Encounter for screening for malignant neoplasm of prostate (principal); E78.00 Pure hypercholesterolemia, unspecified; R73.02 Impaired glucose tolerance (oral); Z80.42 Family history of malignant neoplasm of prostate
CPT/HCPCS: 36415; 80053; 80061; 82607; 82746; 83036; 84153; 84439; 84443; 85025